=== PATIENT | female | born 1975 | race Caucasian/White ===

== ENCOUNTER 2018-03-21 16:46 | Emergency (ER) | payer MEDICARE, MEDICAID ==
[~2018-03-21] VITALS: Ht 157.5 cm; Wt 75.5 kg
[2018-03-21] MEDS ORDERED: ALPR0.255 PO (17:11)
[2018-03-21] MEDS ORDERED: PREG25 PO (17:11)
[2018-03-21] MEDS ORDERED: IBUPROFEN 800 MG TABLET PO ONE (20:15)
[2018-03-21] MEDS ORDERED: PENICILLIN V POTASSIUM 500 MG TABLET PO ONE (20:15)
[2018-03-21 20:24] VITALS: BP 133/91
== END 2018-03-21 20:37 | disposition home or self-care (01) ==
LOC: EMS 16:47
DX: K08.89 Other specified disorders of teeth and supporting structures (principal); R03.0 Elevated blood-pressure reading, without diagnosis of hypertension; F41.9 Anxiety disorder, unspecified; Z79.899 Other long term (current) drug therapy
CPT/HCPCS: 99283